=== PATIENT | male | born 1985 | race Caucasian/White ===

== ENCOUNTER 2021-08-14 08:51 | Emergency (ER) | payer OTHER ==
--- NOTE | 2021-08-14 11:11 | ED Physician Documentation ---
PD HPI HEADACHE - Stated complaint Stated Complaint: HEAD PX/BLURRED VISION - Chief complaint Chief Complaint: General - History obtained from History obtained from: Patient - History of Present Illness Timing - onset: How many months ago (has had pains in left arm for a month, then developed pains both thighs the past couple of weeks. Seen by PMD with some labs done. Seen [place] last Saturday in ER for same and had labs done. PMD considering MRI and working referral. Labs showed elevated ESR 80, CRP 25. right face pain.) Timing - duration: Months (1) Timing - details: Gradual onset, Still present Location: Front (pain in right mandible and seen by dentist, on Amox. Had dental block in [place] last Saturday without change in pain, but right face/scientology area hurting now too. No rash.), Right Quality: Aching Associated symptoms: No: Fever, Stiff neck, Nausea Contributing factors: No: Recent illness Similar symptoms before: Has not had sx before Recently seen: Emergency Dept Review of Systems Constitutional: denies: Fever, Chills Eyes: reports: Photophobia. denies: Loss of vision, Decreased vision Nose: denies: Rhinorrhea / runny nose, Congestion Throat: denies: Sore throat Respiratory: denies: Cough GI: denies: Nausea, Vomiting, Diarrhea Skin: denies: Rash, Lesions Neurologic: reports: Headache (right facial/scientology). denies: Focal weakness, Numbness PD PAST MEDICAL HISTORY - Past Medical History Cardiovascular: None Respiratory: None Neuro: None Endocrine/Autoimmune: None - Present Medications Home Medications: Ambulatory Orders Medication Instructions Recorded Confirmed Amoxicillin 500 mg PO TID 08/14/21 08/14/21 Gabapentin [Neurontin] 300 mg PO HS 08/14/21 08/14/21 HYDROcod/ACETAM 5/325 [[place] 5/325] 1 ea PO Q6H PRN #12 tablet 08/14/21 Meloxicam [Mobic] 7.5 mg PO BID 10 Days #20 tablet 08/14/21 Ondansetron Odt [Zofran] 4 mg TL Q6H PRN #10 tablet 08/14/21 dexAMETHasone [Decadron] 4 mg PO DAILY 10 Days #10 tablet 08/14/21 - Allergies Allergies/Adverse Reactions: Allergies Allergy/AdvReac Type Severity Reaction Status Date / Time No Known Drug Allergies Allergy Verified 08/14/21 09:05 PD ED PE NORMAL - Vitals Vital signs reviewed: Yes - General General: Alert and oriented X 3, Well developed/nourished, Other (appears uncomfortable due to right headache. ) - HEENT HEENT: PERRL, EOMI - Neck Neck: Supple, no meningeal sign, No adenopathy - Cardiac Cardiac: RRR, No murmur - Respiratory Respiratory: Clear bilaterally - Derm Derm: Normal color, Warm and dry - Extremities Extremities: Other (left shoulder and both legs with ROM that does not augment pain. ) - Neuro Neuro: Alert and oriented X 3, No motor deficit, No sensory deficit, Normal speech Results - Vitals Vitals: Oxygen O2 Source Room air - Labs Labs: Laboratory Tests 08/14/21 08/14/21 08/14/21 12:15 12:15 12:15 WBC 8.1 RBC 5.37 Hgb 16.2 Hct 47.0 MCV 87.5 MCH 30.2 MCHC 34.5 RDW 11.8 L Plt Count 304 MPV 9.3 Neut # (Auto) 5.8 Lymph # (Auto) 1.3 L [place] # (Auto) 0.6 Eos # (Auto) 0.2 Baso # (Auto) 0.1 Absolute Nucleated RBC 0.00 Nucleated RBC % 0.0 ESR 8 Sodium Potassium Chloride Carbon Dioxide Anion Gap BUN Creatinine Estimated GFR (MDRD) Glucose Calcium Total Bilirubin AST ALT Alkaline Phosphatase Total Creatine Kinase C-Reactive Protein Total Protein Albumin Globulin Albumin/Globulin Ratio Lipase Rheumatoid Factor NEGATIVE 08/14/21 12:15 WBC RBC Hgb Hct MCV MCH MCHC RDW Plt Count MPV Neut # (Auto) Lymph # (Auto) [place] # (Auto) Eos # (Auto) Baso # (Auto) Absolute Nucleated RBC Nucleated RBC % ESR Sodium 139 Potassium 3.8 Chloride 104 Carbon Dioxide 24 Anion Gap 11.0 BUN 14 Creatinine 1.0 Estimated GFR (MDRD) 84 L Glucose 98 Calcium 9.0 Total Bilirubin 0.9 AST 31 ALT 51 Alkaline Phosphatase 53 Total Creatine Kinase 27 C-Reactive Protein 5.0 H Total Protein 7.7 Albumin 3.9 Globulin 3.8 Albumin/Globulin Ratio 1.0 Lipase 836 H Rheumatoid Factor - Rads (name of study) head/neck CT Radiology: Prelim report reviewed (no acute process), See rad report PD MEDICAL DECISION MAKING - ED course Complexity details: reviewed results (ESR/CRP much improved from last week. Interesting so different. Lipase here elevated without obvious reason. ), considered differential (diffuse pains in muscles and back, some headache and facial pain. Blurred vision. Had elevated ESR/CRP on recent blood tests, so consider autoimmune. Also consider MS, but will need MRI. Get CT to eval for tumor/swelling/etc for now. ), d/w patient Departure - Departure Disposition: Home, Self Care Clinical Impression: Facial pain, Elevated lipase Extremity pain Qualifiers: Extremity pain location: upper arm Laterality: left Qualified Code(s): M79.622 - Pain in left upper arm Condition: Stable Record reviewed to determine appropriate education?: Yes Follow-Up: TAMEKA PAREDES DO [Primary Care Provider] - Prescriptions: dexAMETHasone [Decadron] 4 mg PO DAILY 10 Days #10 tablet Meloxicam [Mobic] 7.5 mg PO BID 10 Days #20 tablet HYDROcod/ACETAM 5/325 [[place] 5/325] 1 ea PO Q6H PRN #12 tablet PRN Reason: Pain Ondansetron Odt [Zofran] 4 mg TL Q6H PRN #10 tablet PRN Reason: Nausea / Vomiting Comments: Your inflammatory markers today are actually much improved compared to the recent blood test. Your ESR is eight. Your CRP is five. Your liver enzymes are normal. You do have an elevation of your lipase which is a pancreatic enzyme. Unclear the cause of this at this point. It would want to get rechecked by your primary care in the near future. Your head and neck CT scans are normal. Follow-up with your primary care regarding any further imaging such as MRI to look for other abnormality causes such as MS etc. At this point we will try to anti-inflammatories with Decadron steroid daily as directed presuming some immune or inflammatory condition. After done with that, then start Meloxicam NSAID. Add Zofran if needed for nausea. Add Tylenol every 4-6 hours if needed for pains. Alternatively hydrocodone if needed for worse pain periodically. Follow-up with your primary care for reevaluation. He will also need to follow- up on the send out tests that I ordered here to look more specifically at autoimmune type processes. They should result in a few days. [facility] I am prescribing a short course of narcotic pain medication for you. These are potentially dangerous and addictive medications that should be used carefully. These medications may constipate you. Take an [id number] stool softener such as docusate twice daily with plenty of water while taking these medications. If you go 24 hours without a bowel movement, take [id number]-[id number] MiraLAX, per package instructions. Do not drink or drive while taking these medications. If you received narcotic or sedating medications while in the emergency depart ment do not drive for 24 hours. Store this medication in a safe, secure place and out of reach of children. It is a violation of federal law to give or sell this medication to another person or to use in a manner other than prescribed. The ED will not refill narcotic prescriptions, including prescriptions lost or stolen. You can dispose of unwanted medications at the [facility]'s office or at several pharmacies such as [facility]. Forms: Activity restrictions Discharge Date/Time: 08/14/21 14:42
[2021-08-14] MEDS ORDERED: HYDROmorphone 1 MG/ML CARPUJECT IVP STA (12:04)
[2021-08-14] MEDS ORDERED: SODIUM CHLORIDE 0.9% 1,000 ML IV STA (12:04)
[2021-08-14] MEDS ORDERED: KETOROLAC 30 MG/ML VIAL IVP STA (12:04)
[2021-08-14] MEDS ORDERED: DEXAMETHASONE 10 MG/ML VIAL IVP STA (12:04)
[2021-08-14 12:38] LABS: BASOPHILS # (AUTO) 0.1 10^3/uL (0.0-0.1); BASOPHILS % (AUTO) 0.9 %; EOSINOPHILS # (AUTO) 0.2 10^3/uL (0.0-0.7); EOSINOPHILS % (AUTO) 2.5 %; HGB - HEMOGLOBIN 16.2 g/dL (14.0-18.0); LYMPHOCYTES # (AUTO) 1.3 10^3/uL (1.5-3.5); LYMPHOCYTES % (AUTO) 16.5 %; MEAN CORPUSCULAR HEMOGLOBIN 30.2 pg (27.0-31.0); MEAN CORPUSCULAR HGB CONC 34.5 g/dL (32.0-36.0); MEAN CORPUSCULAR VOLUME 87.5 fL (80.0-94.0); MEAN PLATELET VOLUME 9.3 fL (7.4-11.4); MONOCYTES # (AUTO) 0.6 10^3/uL (0.0-1.0); NEUTROPHILS # (AUTO) 5.8 10^3/uL (1.5-6.6); NEUTROPHILS % (AUTO) 71.9 %; PLT - PLATELET COUNT 304 10^3/uL (130-450); RED BLOOD COUNT 5.37 10^6/uL (4.70-6.10); RED CELL DISTRIBUTION WIDTH 11.8 % (12.0-15.0); WHITE BLOOD COUNT 8.1 x10^3/uL (4.8-10.8)
--- NOTE | 2021-08-14 13:26 | CT Report ---
PROCEDURE: HEAD WO INDICATIONS: right headache, arm pain TECHNIQUE: Noncontrast 4.5 mm thick angled axial sections acquired from the foramen magnum to the vertex. For r adiation dose reduction, the following was used: automated exposure control, adjustment of mA and/or kV according to patient size. COMPARISON: None. FINDINGS: Image quality: Excellent. CSF spaces: Basal cisterns are patent. No extra-axial fluid collections. Ventricles are normal in size and shape. Brain: No midline shift. No intracranial masses or hemorrhage. Celestin-white matter interface is norm al. Skull and face: Calvarium and visualized facial bones are intact, without suspicious lesions. Sinuses: Visualized sinuses and mastoids are predominantly clear. IMPRESSION: No acute intracranial abnormality. Reviewed by: Huber Bueno MD on 08/14/2021 12:25 PM [facility] Approved by: Huber Bueno MD on 08/14/2021 12:25 PM [facility] Station ID: [id number]
--- NOTE | 2021-08-14 13:28 | CT Report ---
PROCEDURE: CERVICAL SPINE WO INDICATIONS: radicular pains left arm TECHNIQUE: Noncontrast 3 mm thick sections acquired from the skull base to the T4 level. Sagittal and coronal r eformats were then constructed. For radiation dose reduction, the following was used: automated exp osure control, adjustment of mA and/or kV according to patient size. COMPARISON: None. FINDINGS: Image quality: Excellent. Bones: No suspicious lytic or blastic osseous lesion. No fracture or dislocation. Mild straightening of the usual cervical lordosis, likely positional. Otherwise normal alignment. Visualized superior ri bs are intact. No significant osseous neural foraminal narrowing or spinal canal stenosis. Soft tissues: Prevertebral soft tissues are normal in thickness. No paravertebral hematomas. No ap ical pneumothoraces. IMPRESSION: No acute finding or significant degenerative changes. Reviewed by: Huber Bueno MD on 08/14/2021 12:27 PM [facility] Approved by: Huber Bueno MD on 08/14/2021 12:27 PM [facility] Station ID: [id number]
[2021-08-14 13:30] LABS: ALBUMIN 3.9 g/dL (3.2-5.5); BILIRUBIN,TOTAL 0.9 mg/dL (0.2-1.0); POTASSIUM 3.8 mmol/L (3.5-5.0); TOTAL PROTEIN 7.7 g/dL (6.7-8.2)
[2021-08-14 13:53] LABS: RHEUMATOID FACTOR NEGATIVE (Negative)
[2021-08-14 14:09] VITALS: BP 132/80
[2021-08-16 13:36] LABS: ANA SCREEN NEGATIVE (NEGATIVE)
== END 2021-08-14 14:42 | disposition home or self-care (01) ==
LOC: ED 08:51
DX: R51.9 Headache, unspecified (principal); R74.8 Abnormal levels of other serum enzymes; M79.622 Pain in left upper arm
CPT/HCPCS: 36415; 70450; 72125; 80053; 82550; 83690; 85025; 85651; 86038; 86140; 86225; 86430; 96374; 96375; 99283; 99284; J1170

== ENCOUNTER 2021-11-13 15:31 | Outpatient (CLI) | payer OTHER ==
--- NOTE | 2021-11-13 19:44 | CONSULTATION NOTE ---
Palliative Care Consultation - Referral Referring Provider: Dr. 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 He has already achieved complete remission on PET scan 10/31/2021 after two cycles of induction therapy. He is recovering from the third cycle of chemotherapy, was just discharged last week. It has been a significantly difficult journey for him and Anette, patient was having escalating pain, multiple ED visits with direction for outpatient work up, they were left for a prolonged and stressful time without understanding of a diagnosis of his underlying prognosis. His most significant symptom at that point in time, had been pain, debilitating as well as his worsening vision with right eye ptosis and vision impairment. Unfortunately as part of his induction treatments, they required hospitalization, which was quite isolating and difficult for him, his journey included an admit for neutropenic fever, severe sepsis, and development of a perianal abscess. Because of the pandemic, his was not allowed in, they did not know what to expect, communication was difficult, though they were able to talk several times a day. It was less difficult this last time as he did know what to expect, but still patient has been feeling depressed and anxious with persistent feelings of helplessness and hopelessness. Patient is quite tearful and overwhelmed during our conversation, though does use humor also to deflect. Patient's pain has continued to improve, he is on fentanyl 25 mcg patch, on gabapentin 600 mg 3 times daily, with goal to titrate down, and does have an opioid for breakthrough pain, which he has not needed. Though he does describe end-of-dose failure on his fentanyl patch on third day with headache pain. Reports he has lower back pain and bilateral mid abdominal pain and discomfort, but does fluctuate. He is keeping his stools soft, and feels his perianal abscess is managed at this time. He believes there is a plan for repair after he is done with treatment. He has had weight loss, about 30 pounds. Reports this is mostly attributed to dislike of the food, this last time he brought snacks and did better.He is currently trying to "catch up" and is eating well. Palliative care meeting with patient and his , regarding his emotional distress, review of his journey and difficulties, as well as identifying need for increased support. 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 Support System: Patient has 3 children, 1 daughter still at home. Patient is active , originally from [place]. He and Anette were high school sweetheart's, has been difficult in the context of community support. Family History - Family History Family History: Mother: Alive and Well, Father: Alive and Well Medications/Allergies - Medications Home Medications: Ambulatory Orders Medication Instructions Recorded Confirmed Gabapentin [Neurontin] 600 mg PO BID MDD titrating down 08/14/21 11/14/21 TID Ondansetron Odt [Zofran] 4 mg TL Q6H PRN #10 tablet 08/14/21 11/14/21 Acyclovir 400 mg PO BID 09/25/21 11/14/21 Fluconazole [Diflucan] 200 mg PO DAILY 09/25/21 11/14/21 fentaNYL [Fentanyl 25mcg patch] 1 each TD UD 09/25/21 11/14/21 Acetaminophen [Tylenol Extra 1,000 mg PO Q6H MDD 3000mg 10/16/21 11/14/21 Strength] Loperamide [Imodium] 2 mg PO Q4H PRN MDD 8mg 10/16/21 11/14/21 Famotidine [Pepcid] 20 mg PO DAILY 11/09/21 11/14/21 Sulfamethox/Trimeth 800/160 1 tab PO .MWF 11/09/21 11/14/21 [Bactrim Ds] levoFLOXacin [Levaquin] 500 mg PO DAILY 11/09/21 11/14/21 Escitalopram [Lexapro] 10 mg PO DAILY 11/14/21 11/14/21 traZODone [Desyrel] 25 - 50 mg PO QPM 11/14/21 11/14/21 - Allergies Allergies/Adverse Reactions: Allergies Allergy/AdvReac Type Severity Reaction Status Date / Time No Known Drug Allergies Allergy Verified 08/14/21 09:05 Review of Systems - Constitutional Constitutional: reports: Fatigue, Weakness, Weight loss (175). denies: Fever, Chills - Eyes Eyes: reports: Vision loss, Dipolpia (though improving) - Cardiovascular Cardiovascular: reports: Decr. exercise tolerance - Respiratory Respiratory: denies: Cough, SOB at rest - Gastrointestinal Gastrointestinal: reports: Abdominal pain, Early satiety. denies: Constipation (managed currently) - Musculoskeletal Musculoskeletal: reports: Muscle weakness - Integumentary Integumentary: reports: Dryness, Hair changes (alopecia) - Neurological Neurological: reports: General weakness, Numbness - Psychiatric Psychiatric: reports: Depression, Anxiety - Hematologic/Lymphatic Hematologic/Lymph: reports: Anemia - All Other Systems All Other Systems: reports: Reviewed and negative Physical Exam - Physical Exam General Appearance: positive: No acute distress, Alert, Anxious Eyes Bilateral: positive: Other (difficulty pulling eye to forward focus; wearing eyepatch) ENT: positive: No signs of dehydration Neck: negative: Lymphadenopathy (R), Lymphadenopathy (L) Respiratory: positive: No respiratory distress Abdomen: positive: Soft, Tenderness Skin: positive: Pallor Extremities: positive: No pedal edema Neurologic/Psychiatric: positive: Oriented x3, Depressed mood/affect (very tearful) Palliative Care - POLST Patient has POLST: No POLST Status: Full Code Pain: Location (see hPI) Tiredness/Fatigue: Moderate (4-6) Drowsiness/Sedation: Mild (1-3) Nausea: None Anorexia: None (improved now home) Dyspnea: None Depression: Severe (7-10) Anxiety: Severe (7-10) Feelings of wellbeing/Perceived Quality of Life: Fair, Improved Sleep: Variable sleep pattern (difficulty with sleep patterns back home) Constipation: Yes, Opoid induced, Managed Performance Status: StrongPatient previous baseline had been quite active. Feels like he has had significant muscle loss, feeling weak. Is able to do his ADLs, does ambulate long distances, even in the hospital. We did discuss about reinitiating physical activity and gentle stretching, ways to "create a routine". - Palliative Care Discussion: Met with patient and Karol, shared the story of how complicated has been for them over the last several months, and distress they have been. They have not received much support, has been, more complicated by not being able to visit him at [place] with his prolonged hospitalizations. Patient is feeling depleted both physically and emotionally, describes persistent helplessness and hopelessness. They are hopeful for a good response, feels some uncertainty regarding prognosis, but are trying to look forward to how best to line up their lives as things move forward.Currently they do have their 16-year-old home, it has been difficult for the children. They also are concerned about exposure to Covid given his immunocompromise status adding to their level of distress. They are pursuing counseling at the [employer], encouraged to continue to do this, as well as look at online resources [email or web address]. They have done some end-of-life planning, including [facility] [facility] and [facility]. They do feel if he were to have an event or her another acute hospitalization, Karol does feel like she would be able to speak in alignment with his values and goals.Counseling provided to normalize her current distress and feelings regarding their current journey.Reviewed the role of palliative care and support for symptom management and psychosocial counseling and needs. Results - Lab Results Lab results reviewed: Yes Impression and Recommendations - Palliative Care Impression: This is a 35-year-old gentleman with high risk Burkitt lymphoma, with lesions invasion to the skull base, T-spine, right lower gum and heavy tumor burden. He also has known resolved sinus thrombosis. He does have persistent right eye proptosis and vision impairment, presents with moderate but improving symptom burden. Palliative care to provide support for pain and symptom management and psychosocial support and anticipatory guidance. Recommendations/Counseling Done: 1. Pain of neoplastic origin. Patient's pain is multifactorial, does have persistent pain in his back and bilateral abdominal areas above the hip. He is currently on gabapentin 600 mg 3 times daily, has been encouraged to titrate down, we discussed titrating more slowly, with 600 a.m., 300 midday, 600 bedtime for 5 to 7 days and then drop the midday dose. Patient also on fentanyl 25 mcg patch for headache persistent pressure. He reports he gets "crappy at the end of the third day, does describe end of dose failure. Encouraged to take half of the hydromorphone in the a.m. and half at 1300 given the pharmacokinetics of fentanyl. We will continue to monitor, if stays persistent may need higher dose of patch. 2. Depression. Patient presents with hopelessness and helplessness, patient would benefit from initiation of an antidepressant, will initiate escitalopram 10 mg, will reevaluate with next visit and titrate accordingly. Patient able to verbalize the difficulties of this current journey, impact on both his health and relationships, as well as concern for the future. Patient encouraged to continue follow-up on his pursuit of counseling, as well as counseling provided to normalize his current response to his situation. Suspect patient has some PTSD given the severity of his illness and hospitalizations with isolation. We did discuss strategies for his upcoming hospitalization, and now he knows what to expect, things that have helped him are bringing snacks, frequent contact with his and family, encouraged to ask for physical therapy next time. 3. Generalized weakness. Patient has had weight loss which includes muscle ma ss. Patient was fairly athletic in good shape previous to acute decline, discussed need for rebuilding. Counseling provided regarding gentle stretching, encouraged use of light weights and bands. Patient has done workout routines before, encouraged to create a routine with a identified time daily to follow through on. Patient verbalizes understanding, this will also support as far as management of depression. 4. Anxiety. Patient does identify the difficulties with his anxiety, discussed this [place] pram should help this as well, encouraged to set some short-term goals, they have been doing some activities outside of "cancer", encouraged to continue to be purposeful with this. Identified outside supports and coping. Patient with new entre into community, and most of support is in [place]. They are looking to do some forward planning regarding post treatment and how best to manage his work life in the future as well. 5. Advanced care planning. Will follow up with oncology regarding expected prognosis, treatment plan, and be able to support for anticipatory guidance. Patient has done DPOA and padilla, has had multiple unfortunate events along the way, is quite anxious regarding this. Does appear to have good communication between Karol and patient regarding patient's needs and concerns, will continue to provide support. Reviewed the role of palliative care. 60 minutes review of oncology notes hospitalization records, labs, imaging, [id number] with patient, family counseling with patient and , and anticipatory guidance. Establishing a rapport for palliative care.
== END 2021-11-13 15:32 | disposition home or self-care (01) ==
LOC: PC 15:31
PROVIDERS: ATTEND Nurse Practitioner Adult Health
DX: Z51.5 Encounter for palliative care (principal); G89.3 Neoplasm related pain (acute) (chronic); C83.79 Burkitt lymphoma, extranodal and solid organ sites; F32.A Depression, unspecified; F41.9 Anxiety disorder, unspecified; R53.1 Weakness; R63.4 Abnormal weight loss; H02.401 Unspecified ptosis of right eyelid; Z79.891 Long term (current) use of opiate analgesic; Z79.899 Other long term (current) drug therapy; Z60.8 Other problems related to social environment
CPT/HCPCS: 99205

== ENCOUNTER 2021-12-04 10:30 | Outpatient (CLI) | payer OTHER ==
--- NOTE | 2021-12-04 13:36 | CONSULTATION NOTE ---
Palliative Care Follow Up - Referral Referring Provider: Dr. 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 He has completed his treatment and was discharged from the hospital 11/28.Both patient and were somewhat distressed as did not get follow-up on discharge regarding what to do, they have though had contact with oncology and Dr. Mackey, is currently taking his Flagyl 500 mg 3 times daily and his levofloxacin as preventative given his pancytopenia. He is feeling quite fatigued, did have a good day yesterday, is quite anxious given his acute hospitalization and sepsis last round with treatment.He has not lost further weight, is doing better with eating, denies shortness of breath, but is having significant fatigue today. His counts were pretty low with a hemoglobin of 6.9 and platelets of 4, he is to receive platelet transfusion. Patient denies any increase in pain, remains on the fentanyl 25, gabapentin 600 mg twice daily. Has not needed anything for breakthrough pain. He did have a couple bad days of sleep cycle, continues on his trazodone 25 mg at bedtime this is starting to improve. He does continue with high anxiety, continues to be worried about his overall prognosis, coming off of his chemotherapy concern for sepsis, continues to feel quite tired and depressed with it 8 out of 10. He had started his Lexapro, unfortunately went right back into the hospital, so have not really had a chance to evaluate this. He does not present with persistent tearfulness, hopelessness nor suicidality. Patient does have quite significant amount of anxiety, particularly with Port-A-Cath draws, we did discuss some alprazolam 0.25 mg low dose for procedures and blood draws to assist with coping, feels just having something he could take if needed will be reassuring. Patient does want to regain his strength, reports decreased strength and deconditioning with prolonged hospitalization and sedentary status. We will go ahead and make referral for physical and occupational therapy, as the queue has been somewhat long in the outpatient setting. Social History - Living Situation Living arrangement: At home Living Situation: With spouse/s.o. Support System: Patient was working up to the time he presented with severe pain and distress, is in the [place]. Expectation is he will return to previous level of functioning, and will return to surveillance. Patient is originally from [place], viola and Karol were high school sweetheart's, they do have 3 children 1 daughter still at home. Are trying to consider what to do long-term given their feelings of vulnerability with his recent diagnosis Medications/Allergies - Medications Home Medications: Ambulatory Orders Medication Instructions Recorded Confirmed Gabapentin [Neurontin] 600 mg PO BID MDD titrating down 08/14/21 12/04/21 TID Ondansetron Odt [Zofran] 4 mg TL Q6H PRN #10 tablet 08/14/21 12/04/21 Acyclovir 400 mg PO BID 09/25/21 12/04/21 Fluconazole [Diflucan] 200 mg PO DAILY 09/25/21 12/04/21 fentaNYL [Fentanyl 25mcg patch] 1 each TD UD 09/25/21 12/04/21 Acetaminophen [Tylenol Extra 1,000 mg PO Q6H MDD 3000mg 10/16/21 12/04/21 Strength] Sulfamethox/Trimeth 800/160 1 tab PO .MWF 11/09/21 12/04/21 [Bactrim Ds] Escitalopram [Lexapro] 10 mg PO DAILY 11/14/21 12/04/21 traZODone [Desyrel] 25 - 50 mg PO QPM 11/14/21 12/04/21 Pantoprazole [Protonix] 40 mg PO DAILY #90 tablet 11/20/21 12/04/21 metroNIDAZOLE [Flagyl] 500 mg PO TID 11/20/21 12/04/21 levoFLOXacin [Levaquin] 1 mg PO DAILY 11/29/21 12/04/21 Potassium Chloride [K-Dur] 40 meq PO DAILY 12/01/21 12/04/21 - Allergies Allergies/Adverse Reactions: Allergies Allergy/AdvReac Type Severity Reaction Status Date / Time No Known Drug Allergies Allergy Verified 08/14/21 09:05 Review of Systems - Constitutional Constitutional: reports: Fatigue (fluctates; has steadily improved since hospital discharge until to day), Weakness, Weight loss (175). denies: Fever, Chills - Eyes Eyes: reports: Vision loss, Dipolpia (though improving) - Ears, Nose & Throat Ears, Nose & Throat: denies: Bleeding gums - Cardiovascular Cardiovascular: reports: Lightheadedness, Decr. exercise tolerance - Respiratory Respiratory: denies: Cough, SOB at rest - Gastrointestinal Gastrointestinal: reports: Abdominal pain, Diarrhea (some loose stools, resolving; on mutilple AB), Early satiety, Other (taste changes). denies: Constipation (managed currently) - Musculoskeletal Musculoskeletal: reports: Muscle weakness - Integumentary Integumentary: reports: Dryness, Hair changes (alopecia) - Neurological Neurological: reports: General weakness, Numbness - Psychiatric Psychiatric: reports: Depression, Anxiety - Hematologic/Lymphatic Hematologic/Lymph: reports: Anemia (6.9) - All Other Systems All Other Systems: reports: Reviewed and negative Physical Exam - Vital Signs Temperature: 36.4 C Pulse Rate: 91 Respiratory Rate: 17 O2 Saturation: 98 Blood Pressure: 126/81 - Physical Exam General Appearance: positive: No acute distress, Alert, Anxious Eyes Bilateral: positive: Other (difficulty pulling eye to forward focus; wearing eyepatch) ENT: positive: No signs of dehydration Neck: positive: Trachea midline Respiratory: positive: No respiratory distress Abdomen: positive: Soft Skin: positive: Pallor Extremities: positive: No pedal edema Neurologic/Psychiatric: positive: Oriented x3, Weakness, Depressed mood/affect (very tearful) Palliative Care - POLST Patient has POLST: No POLST Status: Full Code Pain: Pain unchanged, Location (neck/headache area), Severity (0/10), Comment (fentanyl 25 mcg; gabapentin 600 mg BID) Tiredness/Fatigue: Severe (7-10) Drowsiness/Sedation: Moderate (4-6) Nausea: Mild (1-3) Anorexia: Mild (1-3), Weight loss (only lost 1-2 pounds this stay; used door dash) Dyspnea: None Depression: Severe (7-10) Anxiety: Severe (7-10) Feelings of wellbeing/Perceived Quality of Life: Fair Sleep: Sleep improved, Variable sleep pattern Constipation: No Performance Status: Remains quite weak, had discussed pending PT OT referral, will go ahead and initiate given there is often a cue. Patient has always been quite strong, p hysical strength and endurance important, patient has had prolonged deconditioning, would benefit from support of therapies to improve balance, endurance, and strength both upper extremity and lower. 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 - Palliative Care Discussion: Met with patient and Karol, continue to have a series of unfortunate events, hospitalization was better but still poor communication and prolonged treatment days. Patient is somewhat relieved, but still has worries anticipating the future. This is worse as he is feeling tired and depressed, worries about his family and implications. Patient's treatment is of curative intent, discussion regarding CBT techniques for challenging negative thoughts and reframing. Patient is using distraction. Unfortunately is too soon to see response of antidepressant particularly with hospitalization. But has started will titrate up as indicated. Results - Lab Results Lab results reviewed: Yes Impression and Recommendations - Palliative Care Impression: This is a 36-year-old gentleman with high risk of Burkitt's lymphoma, completing very vigorous treatment. Patient presenting with pancytopenia to be expected given his recent treatment, will receive platelets today, awaiting weighing benefits and burdens of PRBCs. Patient with persistent depression and anxiety, has started Lexapro. Palliative care to provide support for pain and symptom management, psychosocial support and anticipatory guidance. Recommendations/Counseling Done: 1. Pain of neoplastic origin. Patient's pain is multifactorial, does have persistent pain in back and bilateral abdominal areas above the hip, currently on gabapentin is titrated down to 600 mg twice daily, and is on fentanyl 25 mcg patch for headache and persistent pressure. We will continue to monitor, depending on response, may be able to titrate back further. Reports was able to bridge with half a tab of hydromorphone for third day of fentanyl patch, at this point no changes made until patient has resolved pancytopenia, and further improvement with energy allows more consistent activity level. 2. Depression. Patient presents with continued feelings of persistent depression, though has just completed hospitalization. Because has been hospitalized, most likely not able to see results for at least another week. Patient had initiated Lexapro. Patient appropriately continues to worry about the future, continues to have challenges with navigating the healthcare system and getting information needed to help with anxiety and understanding. Patient is due to meet with oncology, discussed some appropriate questions to add in. 3. Generalized weakness. Patient has had weight loss including muscle mass, did send referral to [facility] for PT /OT. 4. Anxiety. Patient does identify difficulties with fluctuating anxiety, will provide some short acting alprazolam on, as it is often triggered by procedures and blood draws, to have a tool in his toolbox. I suspect this will continue to improve as he gets further away from treatment, he is quite anxious about recurrent sepsis and ending up in the hospital again. 5. Advanced care planning. Patient is getting treatment for curative intent, patient has done his DPOA and padilla, has had multiple unfortunate events along the way. Will follow up on end-of-life checklist and future appointments, continue provide support, and anticipatory guidance. 45 minutes with review of labs, oncology notes, [id number] with patient and for counseling regarding anxiety, depression, and pain management, will see patient next week in follow-up.
== END 2021-12-04 10:31 | disposition home or self-care (01) ==
LOC: PC 10:30
PROVIDERS: ATTEND Nurse Practitioner Adult Health
DX: Z51.5 Encounter for palliative care (principal); G89.3 Neoplasm related pain (acute) (chronic); C83.78 Burkitt lymphoma, lymph nodes of multiple sites; F32.A Depression, unspecified; F41.9 Anxiety disorder, unspecified; R53.1 Weakness; R51.9 Headache, unspecified
CPT/HCPCS: 99215

== ENCOUNTER 2021-12-11 08:40 | Outpatient (CLI) | payer OTHER ==
--- NOTE | 2021-12-11 14:36 | CONSULTATION NOTE ---
Palliative Care Follow Up - Referral Referring Provider: Dr. Rikki Beebe Time of Visit: 0840 45 min [place] [facility] [place] Reason: Depression/Pain neoplastic origin/Lymphoma - Information Sources Records reviewed: RN notes reviewed, Previous records reviewed History/Review of Systems obtained from: Patient, Family ( Anette) Exam limitations: No limitations - History of Present Illness Update Brief HPI Update: This is a yolie 36-year-old gentleman who has Burkitt's lymphoma, high risk with known lesions invasion of the skull base, T-spine, right lower gum and noted heavy tumor burden. He has completed his treatment, and was discharged in the hospital 11/28. Patient continues with pancytopenia, with further drop on 12/07 of the hemoglobin 5.8. He did receive 2 units of packed red blood cells and platelets for 19,000, he is feeling much better, with improved fatigue and overall feeling of wellbeing. Today on 12/11 he is holding to 8.3, platelets 124, he did have a spike in his white count to 17.2 but does not show any signs or symptoms of infection. His neutrophil count was 9.8. He reports his fistula is continued to improve, is soaking in Epson salts, no pain or burning with urination, respiratory status is stable. He did have an exacerbation of headache pain Saturday through when he had a drop in his counts, but with transfusion this has really resolved. He continues with still some background pain, but it is continue to improve as well. He denies any dizziness. He continues with still some diplopia in his right eye, but this is improving as well. Asking appropriate questions as far as follow-up regarding improving vision, and consideration of vision therapy. Patient does have severe anxiety related to use of the Port-A-Cath, needles, previous to transfusion. He was able to use alprazolam with good response, and feels this is helped him with being able to cope and relax. He does understand this is a short-term intervention, but is feeling grateful to have something as it is overwhelming. We did discuss in the context as his pain is improving, to continue to slowly wean back on his pain medications. We did discuss appropriate taper schedule today. Patient continues with fluctuating mood, it does feel improved with his improvement in his counts and feeling of wellbeing. There is a pending physical therapy appointment when patient is feeling able to participate. He still is experiencing what I would reflect upon as PTSD related to his aggressive and acute treatment as well as presenting symptoms. He does feel like he is starting to come to terms with some of this, will continue to provide support and encouragement regarding long-term adjustment. Social History - Living Situation Living arrangement: At home Living Situation: With spouse/s.o. Support System: Patient was working up to the time he presented with severe pain and distress in the [place]. Expectation is he will return to some level of previous functioning, and return to active surveillance. 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 Are discussing how best to move forward with long-term planning and making priorities. Medications/Allergies - Medications Home Medications: Ambulatory Orders Medication Instructions Recorded Confirmed Gabapentin [Neurontin] 600 mg PO .300 MG AM 600 MG PM MDD 08/14/21 12/11/21 titrating down Ondansetron Odt [Zofran] 4 mg TL Q6H PRN #10 tablet 08/14/21 12/11/21 Acyclovir 400 mg PO BID 09/25/21 12/11/21 Fluconazole [Diflucan] 200 mg PO DAILY 09/25/21 12/11/21 fentaNYL [Fentanyl 25mcg patch] 1 each TD UD MDD titrating down to 09/25/21 12/11/21 12 mcg Acetaminophen [Tylenol Extra 1,000 mg PO Q6H MDD 3000mg 10/16/21 12/11/21 Strength] Sulfamethox/Trimeth 800/160 1 tab PO .MWF 11/09/21 12/11/21 [Bactrim Ds] Escitalopram [Lexapro] 10 mg PO DAILY 11/14/21 12/11/21 traZODone [Desyrel] 25 mg PO QPM 11/14/21 12/11/21 Pantoprazole [Protonix] 40 mg PO DAILY #90 tablet 11/20/21 12/11/21 Potassium Chloride [K-Dur] 40 meq PO DAILY MDD 40 meq x1 12/01/21 12/11/21 week; then 20 MEQ - Allergies Allergies/Adverse Reactions: Allergies Allergy/AdvReac Type Severity Reaction Status Date / Time No Known Drug Allergies Allergy Verified 08/14/21 09:05 Review of Systems - Constitutional Constitutional: reports: Fatigue (fluctates; has steadily improved since hospital discharge until to day), Weakness, Weight loss (175). denies: Fever, Chills - Eyes Eyes: reports: Vision loss, Dipolpia (though improving) - Cardiovascular Cardiovascular: reports: Decr. exercise tolerance - Gastrointestinal Gastrointestinal: reports: Abdominal pain, Constipation (fluctuating with moving from chemotherapy to opioid induced), Early satiety, Other (fistula continues but decrease in size; no increase in pain or drainage per report) - Musculoskeletal Musculoskeletal: reports: Muscle weakness - Integumentary Integumentary: reports: Dryness, Hair changes (alopecia) - Neurological Neurological: reports: General weakness, Headache (worsened during acute anemia; improved today), Numbness - Psychiatric Psychiatric: reports: Depression, Anxiety (felt better with alprazaolom for panicky feelings;) - Endocrine Endocrine: reports: Intolerance to cold - Hematologic/Lymphatic Hematologic/Lymph: reports: Anemia (8.3) - All Other Systems All Other Systems: reports: Reviewed and negative Physical Exam - Vital Signs Temperature: 97.9 C Pulse Rate: 83 Respiratory Rate: 17 O2 Saturation: 97 (ra @ rest) Blood Pressure: 108/74 - Physical Exam General Appearance: positive: No acute distress, Alert Eyes Bilateral: positive: Other (has patch; pupil size slightly narrowed but with patch off matched second pupil; some drifting noted when no concentrating; able to correct) ENT: positive: No signs of dehydration Neck: positive: Trachea midline Respiratory: positive: No respiratory distress Abdomen: positive: Soft, Tenderness Skin: positive: Pallor, Dryness (facial noted). negative: Rash Extremities: positive: No pedal edema Neurologic/Psychiatric: positive: Oriented x3, Mood/affect nml Palliative Care - POLST Patient has POLST: No POLST Status: Full Code Pain: Pain improved Tiredness/Fatigue: Moderate (4-6) Drowsiness/Sedation: Mild (1-3) Nausea: None Anorexia: Mild (1-3) Dyspnea: None Depression: Moderate (4-6) Anxiety: Moderate (4-6) Feelings of wellbeing/Perceived Quality of Life: Fair, Acceptable, Improved Sleep: Sleep improved, Variable sleep pattern Constipation: Yes, Opoid induced, Intermittent constipation Performance Status: Patient is feeling stronger with transfusions, able to manage his ADLs. Is starting to increase activity with improved activity tolerance. - Palliative Care Discussion: Discussion focused on processing feelings regarding most recent hospitalization, continued stressors regarding fluctuating mood and anxiety, uncertainty about the future. Starting to refocus and reframe looking at moving forward. Counseling provided regarding anticipatory guidance as things improved and supporting moving towards a new normal and LTP. Results - Lab Results Lab results reviewed: Yes Impression and Recommendations - Palliative Care Impression: This is a 36-year-old gentleman with high risk Burkitt's lymphoma, having completed very vigorous treatment, now recovering from his pancytopenia. Patient is starting to feel well, particularly after his transfusion. Patient's headache pain, abdominal discomfort, continue to improve. Will start titration, and evaluate if effectiveness and pain levels. Patient continue with fluctuating anxiety and depression, continues to improve as well. Palliative care to provide support for pain and symptom management, psychosocial support and anticipatory guidance Recommendations/Counseling Done: 1. Pain of neoplastic origin. Patient's pain is multifactorial, does have persistent pain in back and bilateral abdominal areas around the hip, currently on gabapentin, titrated down to 600 mg twice daily, without any exacerbation of pain. Will decrease to 300 mg a.m. and 600 mg p.m. Patient on fentanyl 25 mcg patch for headache pain which is resolving as well, will go through 1 more patch change of 25 mcg patch, then decrease to 12 mcg patch and supplement with hydromorphone 2 mg as needed, then will switch over to oral hydromorphone 3-4 tabs a day and titrate down from there.Fentanyl 12 mcg patch is ordered, hydromorphone 2 mg tablets ordered, from [employer]. Gabapentin ordered from [facility] [place]. 2. Dry skin. This is multifactorial, patient has been instructed to use gentle soap such as Cetaphil and Dove, and moisturize daily. 3. Depression. Patient with fluctuating mood of depression anxiety, does seem somewhat improved as well as tearfulness hopelessness and helplessness but remains appropriately anxious regarding pending scans and long-term planning. Will continue to evaluate. Patient is doing better with alprazolam 0.25 mg for escalating anxiety or panic attacks, instructed he could use half tab if feeling distress as full tab did cause some sedation. 4. Generalized weakness. Patient has had weight loss including muscle mass, is starting to increase activity though does have mild activity intolerance. [facility] for PT/OT referral has been made. 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 Has pending appointment 01/03 with surgeon, hope is not to have to surgically repair. Oncology did discontinue the Flagyl and Levaquin today. 6. Burkitt's lymphoma. Patient is completed treatment, has pending labs, follow-up with oncology, and scans in 6 weeks. Patient symptom burden is improving, will continue to follow through acute phase. Provide symptom management and psychosocial support as well as coordination of care. Face45 minutes with review of labs, oncology notes, coordination of care with oncology team, to face with patient for pain and symptom management and counseling for adjustment illness anxiety and depression as well as anticipatory guidance.
== END 2021-12-11 08:41 | disposition home or self-care (01) ==
LOC: PC 08:40
PROVIDERS: ATTEND Nurse Practitioner Adult Health
DX: Z51.5 Encounter for palliative care (principal); G89.3 Neoplasm related pain (acute) (chronic); C83.79 Burkitt lymphoma, extranodal and solid organ sites; D61.810 Antineoplastic chemotherapy induced pancytopenia; T45.1X5A Adverse effect of antineoplastic and immunosuppressive drugs, initial encounter; F32.A Depression, unspecified; F41.9 Anxiety disorder, unspecified; R53.1 Weakness; K60.4 Rectal fistula; K59.03 Drug induced constipation; T40.2X5A Adverse effect of other opioids, initial encounter; R23.9 Unspecified skin changes; R63.4 Abnormal weight loss; R68.81 Early satiety; H53.2 Diplopia; Z79.899 Other long term (current) drug therapy; Z79.891 Long term (current) use of opiate analgesic; Z79.2 Long term (current) use of antibiotics; Z95.828 Presence of other vascular implants and grafts
CPT/HCPCS: 99215

== ENCOUNTER 2021-12-27 09:58 | Outpatient (CLI) | payer OTHER ==
--- NOTE | 2021-12-27 12:12 | CONSULTATION NOTE ---
Palliative Care Follow Up - Referral Referring Provider: Dr. Rikki Beebe Time of Visit: 10:00 45 min Referral setting: [facility] Referral Reason: Depression/Anxiety/Burkitts Lymphoma - Information Sources Records reviewed: Previous records reviewed History/Review of Systems obtained from: Patient Exam limitations: No limitations - History of Present Illness Update Brief HPI Update: This is a yolie 36-year-old gentleman has Burkitt's lymphoma, high risk, with known lesions invasion of skull base, T-spine, right lower gum and noted heavy tumor burden. He has completed his treatment, and is continue to improve. In the context of this, today he presents with improvement of his right eye proptosis and vision impairment, this is resolving. He does have some occasional ocular headaches as he tries to focus after 6 months, but has not needed the eye patch for the last 3 to 4 days. Only notable problematic time is 20 or 30 minutes when he first awakes to adjust. He reports her some color and light pupil changes, but otherwise feels like he is recovering well. He is quite pleased not to be able to have to wear the eye patch. Patient also reports abdominal discomfort for the most part is resolved, his sense of smell and nausea that was negative, is now resolving also. Patient actually has weight gain up to 180, is eating and drinking without difficulty. He reports that he fistula, is watching closely, is continue to heal and does see the surgeon next week. 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 He is feeling positive overall but rightly so with pending anxiety secondary to PET scan scheduled for Saturday. At this point in time palliative care is titrating back his medications, his background abdominal pain is resolved, for which we are using the fentanyl, he is down to his last 12 mcg fentanyl patch, he will transition to 2 mg tabs hydromorphone 1/2-1 tab up to 3 times a day and slowly decrease over 5 days watching for signs and symptoms of withdrawal. Also continue to slowly titrate back gabapentin, is currently on 300 mg twice a day, will order 100 mg and d ecrease 100 mg/week, cannot do more quickly if tolerates, but concern regarding the "ocular headache" symptoms. Social History - Living Situation Living arrangement: At home Living Situation: With spouse/s.o. Support System: Patient is currently on leave from his job at the [employer], it is expected he will return to some level of previous functioning and to active surveillance and back to work. Patient is originally from [place], they are discussing how best to move forward long-term planning and making priorities. They have 1 child still at home, his son is graduating this January, is hoping to and planning on being part of the ceremony.Patient plans to fly, has had his UV shield as well as his boosters. Medications/Allergies - Medications Home Medications: Ambulatory Orders Medication Instructions Recorded Confirmed Gabapentin [Neurontin] 600 mg PO .200 AM 300 MG PM MDD 08/14/21 12/27/21 titrating down 100 mg week Ondansetron Odt [Zofran] 4 mg TL Q6H PRN #10 tablet 08/14/21 12/27/21 Acyclovir 400 mg PO BID 09/25/21 12/27/21 fentaNYL [Fentanyl 25mcg patch] 12 mcg TOP .72 MDD titrating off 09/25/21 12/27/21 next patch suggs Escitalopram [Lexapro] 10 mg PO DAILY 11/14/21 12/27/21 traZODone [Desyrel] 25 mg PO QPM PRN 11/14/21 12/27/21 Pantoprazole [Protonix] 40 mg PO DAILY #90 tablet 11/20/21 12/27/21 Potassium Chloride [K-Dur] 20 meq PO DAILY 12/01/21 12/27/21 - Allergies Allergies/Adverse Reactions: Allergies Allergy/AdvReac Type Severity Reaction Status Date / Time No Known Drug Allergies Allergy Verified 08/14/21 09:05 Review of Systems - Constitutional Constitutional: reports: Fatigue (still some persistent but improved), Weakness, Weight gain (180). denies: Fever, Chills - Eyes Eyes: reports: Blurred vision (small amount), Vision loss. denies: Dipolpia - Cardiovascular Cardiovascular: reports: Decr. exercise tolerance - Respiratory Respiratory: reports: SOB with exertion - Gastrointestinal Gastrointestinal: reports: Good appetite. denies: Abdominal pain (min noted), Nausea - Musculoskeletal Musculoskeletal: reports: Muscle weakness - Integumentary Integumentary: reports: Dryness, Hair changes (alopecia/starting to grow "fuzz") - Neurological Neurological: reports: General weakness, Numbness - Psychiatric Psychiatric: reports: Anxiety (pending LDH/PET scan). denies: Depression (improved; good joaquin) - Hematologic/Lymphatic Hematologic/Lymph: reports: Anemia (cont. improve 9.8) - All Other Systems All Other Systems: reports: Reviewed and negative Physical Exam - Vital Signs Pulse Rate: 54 Respiratory Rate: 18 O2 Saturation: 96 Blood Pressure: 134/80 - Physical Exam General Appearance: positive: No acute distress, Alert, Anxious (pending PET sca n) Eyes Bilateral: positive: Other (no residual eye changes) ENT: positive: No signs of dehydration Neck: positive: Trachea midline Cardiovascular: positive: Regular rate & rhythm Respiratory: positive: No respiratory distress, Breath sounds nml Abdomen: positive: Non-tender, Soft Skin: positive: Pallor, Pruritis (improved with epsom salts; roughened dry skin no inflammation noted) Extremities: positive: No pedal edema Neurologic/Psychiatric: positive: Oriented x3, Mood/affect nml Palliative Care - POLST Patient has POLST: No POLST Status: Full Code Pain: Pain improved, Location ('ocular" headache), Severity (0/10) Tiredness/Fatigue: None Drowsiness/Sedation: None Nausea: None Anorexia: None Dyspnea: None Depression: None Anxiety: Moderate (4-6) Feelings of wellbeing/Perceived Quality of Life: Excellent, Acceptable, Improved Sleep: Sleep improved Constipation: No Performance Status: Patient still with some persistent fatigue, does feel like he has some activity intolerance. He had is have a referral for [facility] physical therapy, though does not have an appointment for a few weeks. We did discuss progressive ambulation is most important at this point in time. - Palliative Care Discussion: Met with patient and , is very excited to have his eyesight back, pain decreasing, energy improving. He is anxious pending his labs this Saturday, and scheduled for PET scan. He does not like the Port-A-Cath, is hoping when all of a sudden done to have it removed, we did discuss coming in and get his labs through his Port-A-Cath and keeping it until PET scan completed, will make arrangements for this.Patient and have done a very nice job, have taken care of end-of-life planning.Counseling provided to normalize feelings of anxiety, normal grief and loss, regarding the last 6 months and changes they have experienced. Also in the context of now living with it anxiety of recurrence, 8 even this round or into the future. Patient is feeling somewhat improved as far as mood and coping, is very supportive. We will continue to support patient into transition to surveillance. Impression and Recommendations - Palliative Care Impression: This is a yolie 36-year-old gentleman with high risk of Burkitt's lymphoma, having completed very vigorous treatment, now recovering from his pancytopenia and resolving diplopia and pain. Patient continues to fluctuate with his anxiety, exacerbated by pending PET scan and elevated LDH. Palliative care to continue provide support for pain and symptom management, psychosocial support and anticipatory guidance. Recommendations/Counseling Done: 1. Pain of neoplastic origin. Patient's pain is multifactorial, does have improving pain in back and bilateral abdominal areas, have been able to titrate down the fentanyl to 12 mcg. Counseling provided regarding at next patch changes to discontinue, and transition to hydromorphone 2 mg 1/2-1 tab 3 times a day and titrate accordingly over there at least 5 days. Patient also has neuropathic/ocular headache pain, which has been responsive to gabapentin, have titrated down to 300 mg twice daily with very little worsening of pain. Ocular headaches last few days most likely related to working more with his resolved Right eye ptosis. Will titrate gabapentin slowly, ordered 100 mg capsules, instructed to decrease 100 mg/week. 2. Right eye proptosis and vision impairment. This continues to improve, does have ophthalmology appointment not till middle of January. Patient does have good ocular movements, will go ahead and have him do mild strengthening exercises. Patient verbalized understanding. 3. Depression. Patient with decrease of medications is doing better overall, does feel the Lexapro is helping him with some mood elevation. Patient appropriately anxious for pending scan and labs. Counseling provided to normalize fears and concerns, as well as acknowledging long-term implications of his current diagnosis and need for surveillance. 4. Anxiety. Patient is quite anxious particular on his Port-A-Cath, does have pending PET scan, discussed strategy to have labs drawn from the needle in, for PET scan, and can have either discontinued at [facility] or return to [facility] for discontinuation. Patient verbalized understanding will make arrangements with [facility] for schedule. 5. Rectal fistula. Patient reports pain is resolved, reports continues to improve. Using Epson bath salt baths about 2 times a week now. Does have pending appointment 4/20 appears most likely has repeat healed on its own. 6. Dry skin. This continues to be multifactorial, has been instructed use gentle soap, I did discuss has Aquaphor available, recommended using this. Suspect will continue to improve. 7. Burkitt's lymphoma. Patient has completed treatment, continues with labs and follow-up. We will have PET scan next week, remains appropriately anxious. We will continue to provide palliative care support. 45 minutes with review of oncology notes, labs, coordination of care with oncology team, [id number] for pain and symptom management, counseling for adjustment illness and anxiety, as well as anticipatory guidance.
== END 2021-12-27 09:59 | disposition home or self-care (01) ==
LOC: PC 09:58
PROVIDERS: ATTEND Nurse Practitioner Adult Health
DX: Z51.5 Encounter for palliative care (principal); G89.3 Neoplasm related pain (acute) (chronic); C83.71 Burkitt lymphoma, lymph nodes of head, face, and neck; H05.20 Unspecified exophthalmos; F32.A Depression, unspecified; F41.9 Anxiety disorder, unspecified; K60.4 Rectal fistula; L85.3 Xerosis cutis
CPT/HCPCS: 99215

== ENCOUNTER 2022-01-15 08:24 | Outpatient (CLI) | payer OTHER ==
[2022-01-15 09:02] LABS: INR 1.1 (0.8-1.2); PT - PROTHROMBIN TIME 11.9 secs (9.9-12.6)
[2022-01-15] MEDS ORDERED: LACTATED RINGERS 1,000 ML IV ONE ×2 (09:03→10:15)
[2022-01-15] MEDS ORDERED: LIDOCAINE-MPF 1% 10 ML AMP ONE (09:07)
[2022-01-15 09:16] LABS: PARTIAL THROMBOPLASTIN TIME 29.7 secs (24.9-33.3)
[2022-01-15] MEDS ORDERED: MIDAZOLAM 2 MG/2 ML VIAL ONE (09:23)
[2022-01-15] MEDS ORDERED: fentaNYL 100 MCG/2 ML VIAL ONE (09:23)
[2022-01-15 11:51] VITALS: BP 116/72
--- NOTE | 2022-01-15 14:34 | CT Report ---
PROCEDURE: Bone Biopsy Ndl Deep Sedation analgesia for 30 minutes. INDICATIONS: BURKITT LYMPHOMA TECHNIQUE: The indications, alternatives, benefits, risks, and possible complications of the procedure were comm unicated to the patient. Informed written consent from the patient was obtained and placed in the art. Continuous EKG and hemodynamic monitoring was started by trained personnel. For radiation dose reduction, the following was used: automated exposure control, adjustment of mA and/or kV according to patient size. The patient was brought to the CT suite and autistic teacher spiral CT imaging was performed with localization g rid. The appropriate site for percutaneous access to the biopsy target was marked, was prepped and d raped sterilely, and was infused with local anaesthesia. Under CT guidance, a core biopsy trocar and needle set was advanced to the biopsy target, and specimen(s) were obtained. The trocar and needle were then removed, and the patient was sent for post-procedure monitoring. COMPARISON: PET/CT images dated 01/02/2022 FINDINGS: Biopsy site: Left femur lesion Needle: Bone biopsy access site Number of passes: 2 Medications: 1% lidocaine for local anaesthesia. IV Fentanyl and Versed for conscious sedation for 30 minutes (see nursing record). Complications: None. IMPRESSION: Successful CT-guided biopsy of left femur lesion. Reviewed by: Irwin Novak MD on 01/15/2022 2:32 PM PDT Approved by: Irwin Novak MD on 01/15/2022 2:32 PM PDT Station ID: [id number]
--- NOTE | 2022-01-15 16:17 | ONCOLOGY/HEMATOLOGY VISIT ---
HEME/ONC PROGRESS NOTE: cc: Anna Julio NP HEM/ONCOLOGY HISTORY: 1. Burkitt lymphoma, high risk, with lesions invasion to skull base, T spine and right low gum; heavy tumor burden. a. BMX small B-cell population by flow. LDH at 736. t(8;14)+; LVEF 67% 08/29/21; Ks22=727%, CSF negative for lymphoma; b. C1AD1 on 08/31/21 R-CODOX-M; C1BD1 R-IVAC 09/27/21-10/02/21; C2AD1 on 10/27/21 modified R-CODOX-M. C2BD1 on 11/23 - 11/28/21. c. Intrathecal chemotherapy: MAYA-C 70mg 09/04/21; 09/06/21; MTX 09/04/21 during A1 cycle; MTX 10/02/21 during B1 cycle; MTX 12mg and MAYA-C 50mg on 10/27/21 and MTX 10/30/21 during A2; MTX 11/23/21 during B2. d. post-chemo PET scan 01/02/22. Isolated left distal femoral diaphysis lesion, SUV 15.6' s/p IR bx 01/15/22 2. 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 Eliquis planned for 3 months per neurologist till after another MRI-Brain Orbits w/wo [img [id number]) 10/25/2021. b. MRI 10/2021, resolved. off Eliquis. 3. Prolonged right eye ptosis and vision impairment a. s/p mirror maker evaluation. b. resolved. off patch 12/30/21 4. Headache and abdominal pains. a. Fentanyl patch 25 MCG. off. b. Gabapentin 600mg 3 times daily; taper to BID. 11/20/21 5. Prophylactic antibiotics. a. s/p Double strings Bactrim Saturday b. s/p Fluconazole 200 mg daily c. Acyclovir 400 mg twice daily ASSESSMENT/PLAN: 1. High risk Burkitt lymphoma. Previous Interval staging PET scan of 10/31/21 after 2 cycles of induction therapy Showed complete response. Completed final day chemo 11/28/21. a. But due to elevated LDH [declining though] we moved PET scan earlier to 01/02/22 which reviewed an isolated active lesion at the left distal femoral diaphysis without corresponding bone lesion on CT scan. b. Had a follow-up MRI of bilateral hips and that also reviewed bilateral distal femoral diaphyses heterogeneous bone marrow signal in the medullary space. This could be regenerating bone marrow. Could also be lymphoma although rather doubtful given entirely normal abdominal adenopathy which was quite bulky. Did have a bone biopsy today. I compared the needle track and the PET scan hotspot. It was apparently in the right location. We will meet in 2 weeks to review the pathology. Anticipating negative bone marrow biopsy From the leg then we will have short interval PET scan follow-up; If again negative, then q6m CT x 2y. c. RTC in 2 w. 2. Pain management due to direct invasion of the lymphoma to the skull and spine. a. Pain management per palliative care [place]. Gabapentin being weaned. 3. Immunosuppression: Immune function recovering post-chemo though will take add'l time beyond recovery of WBC count. a. s/p Evusheld inj for passive immunity - received full dose per FDA guideline. b. He plans on flying for son's college graduation in [place] in January. Will wear N95 and take possible precautions. c. stay on Acyclovir for 6 months. 4. Situation emotional distress and depression. Feeling some relief being post- chemo with counts recovering. Supported by palliative care team; on Lexapro. HISTORY OF CURRENT ILLNESS/REVIEW OF SYSTEMS: As a dictated on 09/25/21 for detailed history. Patient is here for ongoing care regarding above high complexity issues. Going through quite stressful few weeks due to new abnormal PET scan findings. We have been doing further work-up as summarized above. happy to hear his labs better and right eye is back to normal. Has been tapering gabapentin per Anna Julio management. No further perianal pain w/o antibiotics for the past week. They are going to visit [place] in January for their son's college graduation from [employer]. that should be fine. PMF SOCIAL HISTORY: . Children. 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 No contributing family history. hx of Sepsis due to selena-anal abscess, 10/08/21; ICU admission. no surgery yet. hx of Perianal abscess and septic shock led to hospitalization After cycle 1 chemotherapy with Perianal fistula. Resolved. Right eye ptosis due to Lymphoma invasion to the base of the skull. Fully recovered in 12/2021 PHYSICAL EXAM: Weight 85 kg. BP 119/76 HEENT; no jaundice. no erythema of the facial skin Without rash. Extremity; no clubbing, no peripheral edema, no cyanosis; Left above knee area bandage noted due to biopsy today. Having some right posterior tricep region discomfort. No mass lesion. Skin. No new rash. No petechia or purpura. L Extensive PET scan MRI and bone biopsy procedure all reviewed personally. E/M code was selected based on 40 minutes spent on the date of encounter reviewing pertinent history and previous diagnostics, performing medically appropriate examination and evaluation, ordering diagnostic tests and/or medications, counseling and education to patient/family/caregiver. This excludes activities performed by clinical staff Clinical Data: Allergies No Known Drug Allergies Allergy (Verified 01/12/22 13:03) Home Medications Gabapentin [Neurontin] 600 mg PO .200 AM 300 MG PM MDD titrating down 100 mg week 08/14/21 [History Last Taken 01/15/22] Escitalopram [Lexapro] 10 mg PO DAILY 11/14/21 [History Last Taken 01/15/22] traZODone [Desyrel] 25 mg PO QPM PRN 11/14/21 [History Last Taken 01/12/22] HYDROmorphone [Dilaudid] 2 mg PO TID 01/01/22 [History Last Taken 01/12/22] Alprazolam [Xanax] 1 tab PO PRN PRN 01/12/22 [History Last Taken 01/15/22] Acyclovir 400 mg PO DAILY 01/15/22 [History Last Taken 01/15/22] Vital Signs Temp Pulse Resp BP Pulse Ox 36.9 C 59 L 16 116/72 99 01/15/22 11:30 01/15/22 11:30 01/15/22 11:30 01/15/22 11:30 01/15/22 11:30 Recent Lab Results 01/15/22 08:51: PT 11.9, INR 1.1, APTT 29.7
== END 2022-01-15 08:25 | disposition home or self-care (01) ==
LOC: DI 08:24
PROVIDERS: ATTEND Internal Medicine Hematology & Oncology
DX: C83.78 Burkitt lymphoma, lymph nodes of multiple sites (principal)
CPT/HCPCS: 20225; 36415; 85610; 85730

== ENCOUNTER 2022-01-15 14:12 | Outpatient (CLI) | payer OTHER ==
--- NOTE | 2022-01-15 16:34 | CONSULTATION NOTE ---
Palliative Care Follow Up - Referral Referring Provider: Dr. Rikki Beebe Time of Visit: 1430 45 minutes Referral setting: [facility] Referral Reason: Depression/Anxiety/Burkitts Lymphoma - Information Sources Records reviewed: Previous records reviewed History/Review of Systems obtained from: Patient, Family ( Anette) Exam limitations: No limitations - History of Present Illness Update Brief HPI Update: This is a anxious 36-year-old gentleman with history of Burkitt's lymphoma, high risk with known lesions invasion of skull base, T-spine, right lower gum and noted heavy tumor burden. He has completed treatment as of 11/23/2021. Unfortunately he is PET scan did show isolated active lesion at left distal femoral diaphysis, without corresponding bone lesion on CT scan. He received a bone marrow biopsy today. He is appropriately anxious regarding the outcome of this, and overall has continued to improve. Patient does continue with intermittent headache, usually at the end of the day, suspect possible eyestrain/fatigue from previous right eye proptosis and vision impairment. Reports originally took several minutes in the morning to recalibrate, now just 1 to 2 minutes. He is still having some frontal headaches, that do respond to low-dose Hydromorphone more phone 1-2 tabs, it usually 3 tabs total 24 hours. Patient is still on gabapentin 300 mg twice daily, will continue taper after outcome of bone marrow biopsy known.Patient does have new pain on his right triceps area, does feel like most likely has muscle strain, does have some limited range of motion, but we will continue to monitor. He reports has been this way about 2 weeks. He has had a significant amount of anxiety and depression related to concerns for recurrent disease, is feeling like this will be his baseline as far as always waiting for outcomes of his scans and concern for recurrent disease into the future. Patient is planning to go back to [place] tomorrow, medications have been ordered, discussed benefits and burdens of increasing Lexapro, will go ahead and increase to 20 mg. His son will be graduating from college, he will be visiting family, and actually is looking forward to the visit. Social History - Living Situation Living arrangement: At home Living Situation: With spouse/s.o. Support System: Patient is currently on leave from his job at the [employer], is expected to work to return some level of functioning and transition active surveillance. Patient's originally from [place], they again are discussing how best to move forward with long-term planning and making priorities. They still have 1 daughter 16 years old at home, with their son graduating. He is also seeing his other daughter, and new grandchild on his visit. Patient plans to fly, has had his Euv[place]ield as well as boosters. Medications/Allergies - Medications Home Medications: Ambulatory Orders Medication Instructions Recorded Confirmed Gabapentin [Neurontin] 300 mg PO BID 08/14/21 01/15/22 Escitalopram [Lexapro] 20 mg PO DAILY 11/14/21 01/15/22 traZODone [Desyrel] 25 mg PO QPM PRN 11/14/21 01/15/22 Pantoprazole [Protonix] 40 mg PO DAILY #90 tablet 11/20/21 01/15/22 HYDROmorphone [Dilaudid] 2 mg PO TID 01/01/22 01/15/22 Alprazolam [Xanax] 0.25 tab PO PRN PRN 01/12/22 01/15/22 Acyclovir 400 mg PO BID 01/15/22 01/15/22 - Allergies Allergies/Adverse Reactions: Allergies Allergy/AdvReac Type Severity Reaction Status Date / Time No Known Drug Allergies Allergy Verified 01/12/22 13:03 Review of Systems - Constitutional Constitutional: reports: Fatigue (still some persistent but improved), Weakness, Weight gain (180). denies: Fever, Chills - Eyes Eyes: reports: Blurred vision (small amount), Vision loss. denies: Dipolpia - Cardiovascular Cardiovascular: reports: Decr. exercise tolerance - Respiratory Respiratory: denies: SOB at rest - Gastrointestinal Gastrointestinal: reports: Good appetite. denies: Abdominal pain (min noted), Nausea - Musculoskeletal Musculoskeletal: reports: Muscle weakness - Integumentary Integumentary: reports: Dryness, Hair changes (alopecia/starting to grow "fuzz"; grew hollins) - Neurological Neurological: reports: General weakness, Numbness - Psychiatric Psychiatric: reports: Depression, Anxiety - Hematologic/Lymphatic Hematologic/Lymph: reports: Anemia (cont. improve 9.8) - All Other Systems All Other Systems: reports: Reviewed and negative Physical Exam - Vital Signs Temperature: 36.5 C Pulse Rate: 64 Respiratory Rate: 17 O2 Saturation: 98 Blood Pressure: 119/76 - Physical Exam General Appearance: positive: No acute distress, Alert, Anxious (pending bone marrow bx) Eyes Bilateral: positive: Other (no residual eye changes though fatigues end of day) ENT: positive: No signs of dehydration Neck: positive: Trachea midline Respiratory: positive: No respiratory distress Skin: positive: Pallor Extremities: positive: No pedal edema Neurologic/Psychiatric: positive: Oriented x3, Depressed mood/affect, Flat affect Palliative Care - POLST Patient has POLST: No POLST Status: Full Code Pain: Pain improved, Location (frontal h/a: right shoulder), Severity (3/10) Tiredness/Fatigue: Mild (1-3) Drowsiness/Sedation: None Nausea: None Anorexia: None Dyspnea: None Depression: Severe (7-10) Anxiety: Severe (7-10) Feelings of wellbeing/Perceived Quality of Life: Fair, Acceptable, Improved, Comment (severly anxious pending bx) Sleep: Variable sleep pattern Constipation: No Performance Status: Patient has been more sedentary this last week, secondary to anxiety of pending outcome of bone biopsy and possible recurrent disease. Patient is getting stronger each day, able to do more, has been encouraged to start more walking and progressive ambulation program. - Palliative Care Discussion: Discussion centered on pending bone biopsy, emotional response in the context of increased anxiety and depression. Patient does have a pending trip, is going to go, but finds this somewhat overwhelming to have in the background. We did discuss benefits and burdens of increasing antidepressant, we will go ahead and trial for another 3 months, reassured can titrate off as treatment plan emerges and results available as well as patient improvement. CBT to encourage patient stay in the moment, reframe current situation, and encouraged meant about pending trip. Results - Lab Results Lab results reviewed: Yes Impression and Recommendations - Palliative Care Impression: This is an anxious 28-year-old gentleman with high risk Burkitt's lymphoma, having completed very vigorous treatment, recovering pancytopenia, resolving diplopia, and now with some residual headache pain. Patient just completed bone marrow biopsy, appropriately with exacerbation of anxiety and depression in the context of worrying about recurrent disease. Patient is pending trip, painful bone marrow biopsy site today, and no results available as of yet. Palliative care providing support for pain and symptom management, psychosocial support and anticipatory guidance Recommendations/Counseling Done: 1. Pain of neoplastic origin. Patient's pain is multifactorial, does have improved pain overall. Has some residual and intermittent headache pain, mostly at the end of the day. Suspect this may be visual fatigue, is responding to hydromorphone 1-2 tabs, sometimes sees third tab. Continues on gabapentin 300 mg twice daily, will continue currently until results known. Does have 100 mg of gabapentin tabs, will continue titration on return from trip. New right shoulder pain, attributes to muscle pull, encouraged to try something topical, does have Biofreeze at home. 2. Depression. This is been exacerbated with results of PET scan, and pending results of bone biopsy. Discussion regarding enlisting previous coping mechanisms, encouraged looking forward to his trip, but will go ahead and increase his SL [place] pram to 20 mg daily. Discussed this can be just seen as a temporary measure, would continue for at least 3 months and consider rechallenge eating and titrating down.Patient verbalized understanding, new strength of medication ordered. 3. Anxiety. This is multifactorial, has been successful in using alprazolam 0.25 mg as needed for escalation or panic attacks needing for procedures and intermittent. We will continue to monitor. 4. Burkitt's lymphoma. Patient is completed treatment, continues with labs and follow-up as well as close monitoring. Awaiting outcome of bone marrow biopsy for further implications regarding treatment plan. 45 minutes with Review of chart, labs, coordination of care with oncology. Counseling regarding depression, pain, ordering refills of meds, as well as anticipatory guidance.
== END 2022-01-15 14:13 | disposition home or self-care (01) ==
LOC: PC 14:12
PROVIDERS: ATTEND Nurse Practitioner Adult Health
DX: Z51.5 Encounter for palliative care (principal); G89.3 Neoplasm related pain (acute) (chronic); C83.79 Burkitt lymphoma, extranodal and solid organ sites; R51.9 Headache, unspecified; F32.A Depression, unspecified; F41.9 Anxiety disorder, unspecified; Z79.899 Other long term (current) drug therapy; Z79.891 Long term (current) use of opiate analgesic; Z92.21 Personal history of antineoplastic chemotherapy
CPT/HCPCS: 99215

== ENCOUNTER 2022-02-05 09:50 | Outpatient (CLI) | payer OTHER ==
--- NOTE | 2022-02-05 18:21 | CONSULTATION NOTE ---
Palliative Care Follow Up - Referral Referring Provider: Dr. Rikki Beebe Time of Visit: 1030 45 min [place] [facility] [place] Reason: Pain of neoplastic origin/Recurrence Burkitts Lymphoma/Depression/Anxiety - Information Sources Records reviewed: Previous records reviewed History/Review of Systems obtained from: Patient, Family ( Anette) Exam limitations: No limitations - History of Present Illness Update Brief HPI Update: This is a 36-year-old gentleman with relapse of Burkitt's lymphoma, 01/2020 he did have left distal femur bone biopsy, negative for lymphoma, still limited. He is a current trigger along his right lower gum line. Can visualize actually tumor at base of implant stub, biopsy BX 01/30/2022 with positive for lymphoma. Reports they took a "chunk" that decreased some of the pain. He also underwent a whole-body scan 02/02/2022 that relapse in bones and nodes. Consultation with lymphoma specialist at [facility] for second opinion regarding clinical trial, CAR-T Treatment, or stem cell transplant for this 01/15. Patient has had escalating pain, have been titrating pain medication, but unfortunately still has poorly controlled pain. Patient currently fentanyl 25 mcg patch, has been using Hydromorphone 2 mg to 4 mg tabs 3-4 times, to keep the pain abated. He locates this pain, having severe headache, right jaw pain, pain in left groin and left thigh area. He also reports increasing diffuse abdominal pain. He rates his pain a 7 out of 10. He is currently also on gabapentin 300 mg a.m. and 600 mg p.m., unfortunately we had been titrating back on all his medications during what we thought was a remission, but has escalated significantly over the last 2 to 3 weeks. Patient appropriately has escalating anxiety, was told this was his only option is if [facility] had something to offer, or hospice. He is very adamant he is not "going anywhere". See palliative care discussion regarding this. Was unable to sleep last night secondary to anxiety, both patient and were somewhat stunned regarding the news, did not understand the seriousness of the relapse, in the context of assumption was going to restart chemotherapy.Both are appropriately tearful, and feeling overwhelmed, have not had time ability to process this information, as just met with oncologist. Social History - Living Situation Living arrangement: At home Living Situation: With spouse/s.o. Support System: Patient is currently on leave from his job at the [employer], he is originally from [place]. They have recently just got back early secondary to escalating pain. He was able to see his son graduate as well as be commissioned, but otherwise had many complications along the way with the visit, including not able to see some family members secondary to COVID. They still have 1 daughter [id number] at home, he also was able to see his other daughter and new grandchild on his visit. Medications/Allergies - Medications Home Medications: Ambulatory Orders Medication Instructions Recorded Confirmed Gabapentin [Neurontin] 600 mg PO BID 08/14/21 02/05/22 Escitalopram [Lexapro] 20 mg PO DAILY 11/14/21 02/05/22 Pantoprazole [Protonix] 40 mg PO DAILY #90 tablet 11/20/21 02/05/22 HYDROmorphone [Dilaudid] 4 mg PO .Q 3 HOURS MDD new rx 4 mg 01/01/22 02/05/2202/05 Alprazolam [Xanax] 0.5 tab PO TID PRN 01/12/22 02/05/22 Acyclovir 400 mg PO BID 01/15/22 02/05/22 fentaNYL [Fentanyl 25mcg patch] 37 mcg TOP .Q3 DAYS MDD titrating 02/05/22 02/05/22 with 12 +25 - Allergies Allergies/Adverse Reactions: Allergies Allergy/AdvReac Type Severity Reaction Status Date / Time No Known Drug Allergies Allergy Verified 01/12/22 13:03 Review of Systems - Constitutional Constitutional: reports: Fatigue (worsening; multifactorial), Weakness, Weight gain (86). denies: Fever, Chills - Eyes Eyes: reports: Blurred vision (small amount), Vision loss. denies: Dipolpia - Ears, Nose & Throat Ears, Nose & Throat: reports: Dental pain (recurrent tumor right lower gum line) - Cardiovascular Cardiovascular: reports: Decr. exercise tolerance - Respiratory Respiratory: denies: SOB at rest - Gastrointestinal Gastrointestinal: reports: Abdominal pain (reoccurence/tolerable but ove rwhelming), Early satiety, Other (taste changes). denies: Nausea - Musculoskeletal Musculoskeletal: reports: Back pain, Muscle weakness - Integumentary Integumentary: reports: Dryness, Hair changes (alopecia/starting to grow "fuzz"; grew hollins) - Neurological Neurological: reports: General weakness, Numbness - Psychiatric Psychiatric: reports: Depression, Anxiety - All Other Systems All Other Systems: reports: Reviewed and negative Physical Exam - Vital Signs Temperature: 36.6 C Pulse Rate: 85 Respiratory Rate: 17 O2 Saturation: 97 Blood Pressure: 149/90 - Physical Exam General Appearance: positive: Alert, Moderate distress, Anxious (pending bone marrow bx) Eyes Bilateral: positive: Other (no residual eye changes though fatigues end of day) ENT: positive: No signs of dehydration Neck: positive: Trachea midline Respiratory: positive: No respiratory distress Skin: positive: Pallor Extremities: positive: No pedal edema Neurologic/Psychiatric: positive: Oriented x3, Depressed mood/affect, Flat affect Palliative Care - POLST Patient has POLST: No Pain: Pain worsening, Location (left humerus/right groin/thigh right gumline; severe headaches), Severity (7/10), Pattern (persistent), Comment (currently on 25 mcg fentanyl; hydromorphone 2 mg 3-4 x day; gabapentin 300 mg am/600 mg pm; pain levels still severe) Tiredness/Fatigue: Severe (7-10) Nausea: Mild (1-3), Moderate (4-6) Anorexia: Moderate (4-6) Dyspnea: None Depression: Severe (7-10) Anxiety: Severe (7-10) Feelings of wellbeing/Perceived Quality of Life: Poor, Worsening Sleep: Sleeps poorly Constipation: Yes, Opoid induced, Intermittent constipation Performance Status: Patient is ambulatory, ECOG 1. Is limited though as far as energy and endurance secondary to the pain. - Palliative Care Discussion: . Discussion focused on recent news regarding relapse, and poor prognosis in the context of minimal therapies available at this point. Patient reports he is not "going anywhere" when provided the choice of follow-up versus hospice. We discussed hospice actually gives a layer of support for managing his "living" until his dying process at home, is not a place. They have done a lot of prep as far as end-of-life planning, given the severity and concern of his initial diagnosis. They are feeling somewhat overwhelmed currently, and this was unexpected news. Both appropriately tearful, provided presence and reflective listening. Patient is committed to doing anything that is asked of him, and is hopeful they have something to offer him, would be willing to be admitted that very day, is appropriately anxious and scared given the escalation of his pain a nd symptoms. Results - Lab Results Lab results reviewed: Yes Impression and Recommendations - Palliative Care Impression: This is anxious 36-year-old gentleman with relapsed Burkitt lymphoma, confirmed 01/30/2022.This is serious in the context of minimal treatment options, is pending consultation with lymphoma specialist at [facility] this Saturday. Patient with escalating pain secondary to tumor burden, escalating anxiety and depression, and appropriately feeling overwhelmed given the news they just received. Palliative care providing support for pain and symptom management and anticipatory guidance. Recommendations/Counseling Done: 1. Pain of neoplastic origin. Patient's pain is multifactorial, worsening headache pain most problematic. Had increased fentanyl to 25 mcg patch, but still severity 7 out of 10. Patient has been instructed at 12 mcg patch to equal 37.5, if continues to escalate and use of hydromorphone continues high, will increase to 50, will make contact . We will go ahead and increase gabapentin back to 600 mg twice daily, with option to go to 3 times daily. Patient using 2 hydromorphone tabs at a time, will order 4 mg tabs 1 every 3 hours as needed. 2. Constipation. Patient reports having regular stools, though is getting more firm. Given patient's history of fistula, instructed to add half capful every a.m., continue to titrate MiraLAX and senna appropriately for soft bowel movement daily. 3. Anxiety. This is appropriate given his situation, is multifactorial. Has been using alprazolam 0.25 mg, is unable to sleep last night, encouraged to use 0.5 mg at sleep. We will continue to use intermittently for worsening escalation or panic attacks. We will continue to monitor. 4. Depression. Patient identifies 10 out of 10, and is feeling very discouraged and overwhelmed. Is hopeful for outcome of consult on Saturday, patient with persistent depressive symptoms had been controlled, certainly situational at this point in time, we will continue to monitor. 5. Relapse of Burkitt's lymphoma, 01/30/2022. Confirmed by biopsy, patient with escalating pain, had to come home early from his trip, will go ahead and rewrite letter regarding canceling airline ticket. Answered questions as best as able given his situation and impending questions regarding treatment options. 6. Advanced care planning. Patient with relapse of disease, counseling provided regarding continuum of care including hospice. Palliative care will continue to meet weekly for aggressive symptom management and support. 45 minutes Review of oncology notes, coordination with oncology team, counseling for patient for pain and symptom management, psychosocial support and anticipatory guidance.
== END 2022-02-05 09:51 | disposition home or self-care (01) ==
LOC: PC 09:50
PROVIDERS: ATTEND Nurse Practitioner Adult Health
DX: Z51.5 Encounter for palliative care (principal); G89.3 Neoplasm related pain (acute) (chronic); C83.70 Burkitt lymphoma, unspecified site; R51.9 Headache, unspecified; R68.84 Jaw pain; R10.32 Left lower quadrant pain; M79.652 Pain in left thigh; K59.00 Constipation, unspecified; F41.9 Anxiety disorder, unspecified; F32.A Depression, unspecified
CPT/HCPCS: 99215

== ENCOUNTER 2022-02-13 15:53 | Outpatient (CLI) | payer OTHER ==
--- NOTE | 2022-02-14 10:49 | CONSULTATION NOTE ---
Palliative Care Follow Up - Referral Referring Provider: Dr. Rikki Beebe Time of Visit: 1615 45 minutes Referral setting: [facility] [place] Reason: Recurrence Burkitts Lymphoma/Pain of neoplastic origin/Serous Otitis Media - Information Sources Records reviewed: Previous records reviewed History/Review of Systems obtained from: Patient, Family ( Anette), Other ([facility] records) Exam limitations: No limitations - History of Present Illness Update Brief HPI Update: This is a 36 gentleman with relapse of Burkitt's lymphoma, with recent hospitalization 02/06/22 to 02/09/22 received R ICE chemotherapy, with goal to control disease until final CAR-T cell therapy intervention. Patient did consult with [facility], does perceive this as his last option, with his goals for aggressive therapy. He is awaiting final arrangements, unclear timing of recovery of T cells, as well as finalization of insurance issues.Patient actu ally tolerated treatment fairly well, reports he does have some "chemo brain", does have some improvement already in his pain. But as a result of chemotherapy, continues to be challenged with anorexia, nausea, and taste changes. Patient currently has been titrated up to fentanyl 50 mcg patch, prior to admission to the hospital, has been using 4 mg of hydromorphone fairly regularly, now down to 1 time for 2 mg for some residual headache pain. Patient's pain is mostly where tumor burden is on right side right jaw and right mouth, as well as worsening in his left thigh. Of note patient has had increased swelling in his left thigh, with some distal peripheral edema, no redness heat or tenderness specific to raise suspicion of DVT, this was ruled out. Patient's other persistent symptom has been feeling like his ears are plugged right greater than left, with some increased right ear pain and discomfort. On examination, patient does have mild serous fluid behind his left ear, no redness or signs or symptoms of infection. On right ear does have some bulging of fluid, appears fluid is serous and not cloudy behind, does have some small abrasions in the ear canal, most likely related to Q-tips. No redness or residual signs or symptoms of infection. Patient had prior to hospitalization use some sidetracked with some improvement of symptoms, but still remains on high alert for infection. Patient appropriately concerned regarding in the "waiting time" escalating things happen in the background, has not had any clear answers as far as timing. Has been in touch with their appliance service representative from the [place] for insurance, and does have an appointment pending to see Dr. Beebe on Saturday. Social History - Living Situation Living arrangement: At home Living Situation: With spouse/s.o. Support System: Patient is currently on leave from his job at [employer], originally from [place]. They have 1 daughter a 16-year-old at home, and new puppy. Patient has 2 other children. He and his have been for since they were high school sweetheart's. This has been very difficult and overwhelming overall.Patient did do better in hospital his was able to visit, still continue to be challenged by hospital food and being in the hospital but felt it went better this time. Medications/Allergies - Medications Home Medications: Ambulatory Orders Medication Instructions Recorded Confirmed Gabapentin [Neurontin] 600 mg PO BID 08/14/21 02/14/22 Escitalopram [Lexapro] 20 mg PO DAILY 11/14/21 02/14/22 Pantoprazole [Protonix] 40 mg PO DAILY #90 tablet 11/20/21 02/14/22 HYDROmorphone [Dilaudid] 2 - 4 mg PO .Q 3 HOURS PRN MDD new 01/01/22 02/14/22 rx 4 mg 02/05 Alprazolam [Xanax] 0.5 tab PO TID PRN 01/12/22 02/14/22 Acyclovir 400 mg PO BID 01/15/22 02/14/22 Fluticasone [Flonase] 2 sprays CAROL ANN DAILY MDD 1 week then 02/14/22 02/14/22 decreased 1 spray Loratadine [Claritin] 10 mg PO DAILY 02/14/22 02/14/22 fentaNYL 50 MCG PATCH [Duragesic 50 mcg TOP .72 02/14/22 02/14/22 50mcg patch] polyethylene glycoL 3350 [Miralax] 17 gm PO DAILY PRN 02/14/22 02/14/22 - Allergies Allergies/Adverse Reactions: Allergies Allergy/AdvReac Type Severity Reaction Status Date / Time No Known Drug Allergies Allergy Verified 01/12/22 13:03 Review of Systems - Constitutional Constitutional: reports: Fatigue (worsening; multifactorial), Weakness, Weight gain (86). denies: Fever, Chills - Eyes Eyes: reports: Blurred vision (small amount), Vision loss. denies: Dipolpia - Ears, Nose & Throat Ears, Nose & Throat: reports: Ear pain (right discomfort), Nasal discharge, Dental pain (right molar/tumor area). denies: Sore throat (improved) - Cardiovascular Cardiovascular: reports: Edema (left leg mild/new), Decr. exercise tolerance - Respiratory Respiratory: denies: SOB at rest - Gastrointestinal Gastrointestinal: reports: Nausea (low grade started today), Reflux/heartburn (better now on protonix), Poor appetite, Early satiety, Other (taste changes). denies: Constipation (stools firm), Diarrhea, Rectal bleeding - Musculoskeletal Musculoskeletal: reports: Stiffness, Muscle weakness - Integumentary Integumentary: reports: Dryness, Hair changes (alopecia/starting to grow "fuzz"; grew hollins) - Neurological Neurological: reports: General weakness, Numbness, Memory problems (feels like has "chemo brain") - Psychiatric Psychiatric: reports: Depression, Anxiety - Hematologic/Lymphatic Hematologic/Lymph: reports: Anemia (cont. improve 9.8) - All Other Systems All Other Systems: reports: Reviewed and negative Physical Exam - Vital Signs Pulse Rate: 56 Respiratory Rate: 18 Blood Pressure: 115/68 - Physical Exam General Appearance: positive: Alert, Mild distress, Anxious Eyes Bilateral: positive: Conjunctivae nml, No scleral icterus ENT: positive: No signs of dehydration. negative: Oral lesions Neck: positive: Trachea midline. negative: Lymphadenopathy (R), Lymphadenopathy (L) Cardiovascular: positive: Regular rate & rhythm Respiratory: positive: No respiratory distress, Breath sounds nml, Diminished throughout Abdomen: positive: Soft Skin: positive: Pallor, Dryness Extremities: positive: Pedal edema (slight on left; no warmth or redness) Neurologic/Psychiatric: positive: Oriented x3, Weakness, Depressed mood/affect Palliative Care - POLST Patient has POLST: No Pain: Pain improved, Location (see HPI), Severity (7/10) Tiredness/Fatigue: Severe (7-10) Drowsiness/Sedation: Severe (7-10) Nausea: Severe (7-10) Anorexia: Severe (7-10) Dyspnea: None Depression: Severe (7-10) Anxiety: Moderate (4-6) Feelings of wellbeing/Perceived Quality of Life: Poor, Worsening Sleep: Variable sleep pattern Constipation: Yes, Opoid induced, Intermittent constipation Performance Status: Patient is quite fatigued after hospitalization, is ambulatory and able to manage his ADLs. He is sleeping more. - Palliative Care Discussion: Discussion focused on appointment with [facility] oncologist, do understand that this is his last ditch, is hopeful that there will be movement and things will happen quickly, it has been frustrating with the lack of information and next unknown steps. Grateful that chemotherapy is helping with pain management, and asking appropriate questions about goal for her long-term and next treatment cycle. P atient's symptoms somewhat better controlled, decreasing anxiety with decreased pain though remains quite high with worried about the next steps. Results - Lab Results Lab results reviewed: Yes Impression and Recommendations - Palliative Care Impression: This is an appropriately anxious 36-year-old gentleman with relapsed Burkitt's lymphoma, confirmed 01/30/2022. Patient has spoken with [facility] oncology, pending CAR-T cell intervention, did receive RICE chemotherapy inpatient over the weekend at [place]. Patient's pain which was escalating fairly rapidly secondary to tumor burden, is starting to improve as well as finding appropriate titration of pain medication. Patient appropriately with excoriating anxiety and depression, will continue to follow as next steps are revealed. Palliative care providing support for pain and symptom management and anticipatory guidance. Recommendations/Counseling Done: 1. Pain of neoplastic origin. Patient's pain is multifactorial, has improved with both escalation of pain medications and initiation of RICE chemotherapy. She still has pain 7 out of 10, that has been managed on the fentanyl 50 mcg patch with now only occasional use of hydromorphone 2 mg / 24 hours. Pain is mostly located on the right side and left thigh. Patient currently on gabapentin 600 mg twice daily still has option to go to 3 times daily if needed. We will continue to monitor and titrate appropriately. Patient is encouraged to take what he needs to manage pain, acknowledges understanding. 2. Constipation. Patient reminded to reinitiate MiraLAX, goal to keep stools soft and going daily. Has not had diarrhea secondary to chemo. We will continue to titrate appropriately. 3. Anorexia. This is multifactorial, including taste changes and recent hospitalization. They are focused on good nutrition over this next week, and things that will "increase his T-cell production". Patient does have ondansetron which has been effective, encouraged to use a regular basis. 4. Anxiety. This is appropriate given his situation and again is multifactorial. Does have alprazolam 0.25 mg available to use both for escalating anxiety and/or difficulty leaving secondary to anxiety. We will continue to monitor. 5. Serous otitis media. Patient does demonstrate increased fluid in his ears, pain though more likely related to increasing tumor burden. Will trial since no signs or symptoms of infection, loratadine 10 mg daily, and add Flonase 2 sprays each nostril x1 week then daily. Patient verbalizes understanding if worsens can refer to ENT, or see urgent care clinic/ED visit if appears to be infectious in nature. Currently does not demonstrate signs or symptoms of infection. 6. Advanced care planning. And patient with relapse of disease, will continue to follow along given pending treatment plan. Palliative care will meet weekly for aggressive symptom management and psychosocial support, as well as advanced care planning. 45 minutes Review of chart, hospital records, hospitalization, [id number] with counseling regarding symptom management psychosocial support and anticipatory guidance.
== END 2022-02-13 15:54 | disposition home or self-care (01) ==
LOC: PC 15:53
PROVIDERS: ATTEND Nurse Practitioner Adult Health
DX: Z51.5 Encounter for palliative care (principal); C83.79 Burkitt lymphoma, extranodal and solid organ sites; G89.3 Neoplasm related pain (acute) (chronic); Z79.899 Other long term (current) drug therapy; Z79.891 Long term (current) use of opiate analgesic; K59.03 Drug induced constipation; T40.2X5A Adverse effect of other opioids, initial encounter; F41.9 Anxiety disorder, unspecified; R53.83 Other fatigue; R63.0 Anorexia; R43.9 Unspecified disturbances of smell and taste; T45.1X5A Adverse effect of antineoplastic and immunosuppressive drugs, initial encounter; R11.0 Nausea; H65.93 Unspecified nonsuppurative otitis media, bilateral
CPT/HCPCS: 99215